=== PATIENT | male | born 1995 | race Caucasian/White ===

== ENCOUNTER 2018-05-22 08:51 | Emergency (ER) | payer OTHER ==
[2018-05-22 09:02] VITALS: BP 142/84
--- NOTE | 2018-05-22 09:27 | ED Physician Documentation ---
PD HPI UPPER EXT INJURY - Stated complaint Stated Complaint: L ARM INJURY - Chief complaint Chief Complaint: Trauma Ext - History obtained from History obtained from: Patient - History of Present Illness Location: Left, Arm Type of injury: Twist Where injury occurred: Other (gym) Timing - onset: Last night Timing - duration: Hours Timing - details: Abrupt onset, Still present Improved by: Rest, Ice, Immobilization Worsened by: Moving, Palpating Associated symptoms: Swelling. No: Weakness, Numbness Contributing factors: No: Anticoagulated Similar symptoms before: Has not had sx before Recently seen: Not recently seen - Additonal information Additional information: 23-year-old male was doing [employer] with his companions and 1 of them grabbed his arm in a lock and he went to twist out of it and twisted and pulled his arm hard. He recalls feeling a snapping in his arm and he has pain and swelling in the biceps. He is able to flex and extend the arm all with pain and he is unable to hold the arm in abduction without severe pain. Review of Systems Constitutional: denies: Fever Eyes: denies: Decreased vision Ears: denies: Ear pain Nose: denies: Congestion Throat: denies: Sore throat Respiratory: denies: Cough GI: denies: Vomiting : denies: Dysuria Musculoskeletal: reports: Extremity pain, Extremity swelling Neurologic: denies: Generalized weakness, Focal weakness, Numbness PD PAST MEDICAL HISTORY - Past Medical History Past Medical History: No - Past Surgical History General: Appendectomy HEENT: Tonsil/Adenoidectomy - Present Medications Home Medications: Ambulatory Orders Medication Instructions Recorded Confirmed No Known Home Medications 05/22/18 05/22/18 - Allergies Allergies/Adverse Reactions: Allergies Allergy/AdvReac Type Severity Reaction Status Date / Time No Known Drug Allergies Allergy Verified 05/22/18 09:02 - Social History Does the pt smoke?: No Smoking Status: Never smoker Does the pt drink ETOH?: Yes Does the pt have substance abuse?: No - Immunizations Immunizations are current?: Yes PD ED PE NORMAL - Vitals Vital signs reviewed: Yes (hypertensive ) - General General: Alert and oriented X 3, No acute distress, Well developed/nourished - HEENT HEENT: Atraumatic, PERRL, EOMI - Respiratory Respiratory: No respiratory distress - Derm Derm: Normal color, Warm and dry, No rash - Extremities Extremities: Other (There is swelling and tenderness to the proximal biceps on the left. There is a palpable defect superiorly. He is able to hold the arm in abduction but with pain. distal n/v intact. ) - Neuro Neuro: Alert and oriented X 3, apple picker 2-12 intact, No motor deficit, No sensory deficit, Normal speech Eye Opening: Spontaneous Motor: Obeys Commands Verbal: Oriented GCS Score: 15 - Psych Psych: Normal mood, Normal affect Results - Vitals Vitals: Vital Signs - 24 hr 05/22/18 08:58 Temperature 35.8 C L Heart Rate 62 Respiratory 14 Rate Blood Pressure 142/84 H O2 Saturation 100 Oxygen O2 Source Room air - Rads (name of study) humerus Radiology: Prelim report reviewed (Impression: Normal humerus radiography.), EMP read indepedently, See rad report PD MEDICAL DECISION MAKING - ED course Complexity details: reviewed results, re-evaluated patient, considered differential, d/w patient ED course: 23-year-old male with a tear of his left biceps looks like the proximal bicep is torn and he has no evidence of fracture. He is placed into a sling he will follow-up with orthopedics as needed. Departure - Departure Disposition: 01 Home, Self Care Clinical Impression: Biceps muscle tear Qualifiers: Encounter type: initial encounter Laterality: left Qualified Code(s): S46.212A - Strain of muscle, fascia and tendon of other parts of biceps, left arm, initial encounter Condition: Stable Instructions: ED Strain Muscle Ext Follow-Up: [facility] [Provider Group] Forms: Activity restrictions Discharge Date/Time: 05/22/18 10:05
--- NOTE | 2018-05-22 10:07 | XRAY Report ---
Reason: twisted arm biceps pain Procedure Date: 05/22/2018 Accession Number: [id number] / [id number] Procedure: XR - Humerus LT CPT Code: FULL RESULT: EXAM: LEFT HUMERUS RADIOGRAPHY EXAM DATE: 05/22/2018 09:55 AM. CLINICAL HISTORY: Twisted arm biceps pain. COMPARISON: None. TECHNIQUE: 2 views. FINDINGS: Bones: Normal. No fractures or bone lesions. Joints: Normal. No effusions or subluxations in the visualized shoulder or elbow joints. Soft Tissues: Normal. No soft tissue swelling. IMPRESSION: Normal humerus radiography. [facility]
== END 2018-05-22 10:05 | disposition home or self-care (01) ==
LOC: ED 08:51
DX: S46.212A Strain of muscle, fascia and tendon of other parts of biceps, left arm, initial encounter (principal); X50.1XXA Overexertion from prolonged static or awkward postures, initial encounter; Y93.75 Activity, martial arts; Y92.39 Other specified sports and athletic area as the place of occurrence of the external cause
CPT/HCPCS: 99283